=== PATIENT | female | born 1990 | race Two or more races ===

== ENCOUNTER 2020-01-18 01:11 | Emergency (ER) | payer MEDICAID ==
[~2020-01-18] VITALS: Ht 162.6 cm; Wt 88.6 kg
[2020-01-18 01:15] VITALS: BP 141/78
[2020-01-18] MEDS ORDERED: BENZ-16 PO (02:00)
== END 2020-01-18 02:10 | disposition home or self-care (01) ==
LOC: ER 01:12
DX: R05 Cough (principal); J02.9 Acute pharyngitis, unspecified; Z56.0 Unemployment, unspecified
CPT/HCPCS: 99283

== ENCOUNTER 2021-02-24 05:30 | Emergency (ER) | payer MEDICAID ==
[~2021-02-24] VITALS: Ht 162.6 cm; Wt 86.4 kg
[2021-02-24 06:25] VITALS: BP 130/97
== END 2021-02-24 06:27 | disposition home or self-care (01) ==
LOC: ER 05:30
DX: J02.9 Acute pharyngitis, unspecified (principal); R05 Cough; R21 Rash and other nonspecific skin eruption; E11.9 Type 2 diabetes mellitus without complications; Z56.0 Unemployment, unspecified; Z98.890 Other specified postprocedural states
CPT/HCPCS: 99281

== ENCOUNTER 2021-05-27 17:14 | Emergency (ER) | payer MEDICAID ==
[~2021-05-27] VITALS: Ht 162.6 cm; Wt 95.9 kg
[2021-05-27 17:15] VITALS: BP 147/101
[2021-05-27] MEDS ORDERED: PRED20TA PO (17:49)
[2021-05-27] MEDS ORDERED: PENI250T2 PO (17:49)
[2021-05-27] MEDS ORDERED: LIDO20SO16 PO (17:49)
[2021-05-27] MEDS ORDERED: AMOX500C2 PO (17:58)
== END 2021-05-27 18:04 | disposition home or self-care (01) ==
LOC: ER 17:15
DX: K04.7 Periapical abscess without sinus (principal); K08.89 Other specified disorders of teeth and supporting structures; E11.9 Type 2 diabetes mellitus without complications; Z98.890 Other specified postprocedural states; Z56.0 Unemployment, unspecified; Z79.2 Long term (current) use of antibiotics; Z79.899 Other long term (current) drug therapy
CPT/HCPCS: 99283

== ENCOUNTER 2021-09-07 03:13 | Emergency (ER) | payer MEDICAID ==
[~2021-09-07] VITALS: Ht 175.3 cm; Wt 97.3 kg
[~2021-09-07 03:13] MED LIST: LIDO20SO16 PO
[2021-09-07] MEDS ORDERED: ketorolac tromethamine 15mg/ml inj. IV ONE (04:40)
[2021-09-07] MEDS ORDERED: normal saline 1000ML IV soln IVB ONE (04:40)
[2021-09-07] MEDS ORDERED: SUMAtriptan succ. 6 MG/0.5ml vial SQ ONE (04:40)
[2021-09-07] MEDS ORDERED: dexamethasone sod phosphate 10mg/ml inj IV STA (04:40)
[2021-09-07] MEDS ORDERED: proCHLORperazine 10 MG/2 ml inj IV ONE (04:40)
[2021-09-07] MEDS ORDERED: LORazepam 2 mg/ml vial IV ONE (05:10)
[2021-09-07] MEDS ORDERED: PROC5TAB56 PO (05:26)
[2021-09-07] MEDS ORDERED: SUMA25TA35 PO (05:26)
[2021-09-07 06:31] VITALS: BP 124/98
--- NOTE | 2021-09-07 06:31 | NUR ---
PT REFUSED ALL MEDICATIONS.
== END 2021-09-07 06:34 | disposition home or self-care (01) ==
LOC: ER 03:13
DX: R51.9 Headache, unspecified (principal); F41.9 Anxiety disorder, unspecified; E11.9 Type 2 diabetes mellitus without complications; Z98.890 Other specified postprocedural states; Z56.0 Unemployment, unspecified; Z79.899 Other long term (current) drug therapy
CPT/HCPCS: 70450; 99284

== ENCOUNTER 2021-12-23 05:00 | Emergency (ER) | payer MEDICAID ==
[~2021-12-23] VITALS: Ht 162.6 cm; Wt 94.5 kg
[~2021-12-23 05:00] MED LIST changes: +PROC5TAB56 PO; +SUMA25TA35 PO
[2021-12-23 05:14] VITALS: BP 141/83
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
== END 2021-12-23 07:21 | disposition left against medical advice (07) ==
LOC: ER 05:00
DX: N64.4 Mastodynia (principal); Z53.21 Procedure and treatment not carried out due to patient leaving prior to being seen by health care provider

== ENCOUNTER 2022-02-10 09:52 | Emergency (ER) | payer MEDICAID ==
[~2022-02-10] VITALS: Ht 162.6 cm; Wt 100.0 kg
[2022-02-10 09:58] VITALS: BP 125/95
== END 2022-02-10 13:57 | disposition left against medical advice (07) ==
LOC: ER 09:52
DX: R06.02 Shortness of breath (principal); Z53.21 Procedure and treatment not carried out due to patient leaving prior to being seen by health care provider
CPT/HCPCS: 93005

== ENCOUNTER 2022-03-08 07:44 | Emergency (ER) | payer MEDICAID ==
[~2022-03-08] VITALS: Ht 162.6 cm; Wt 95.5 kg
[2022-03-08] MEDS ORDERED: NYST15PO4 TOP (09:38)
[2022-03-08 10:14] VITALS: BP 132/86
[2022-03-08 10:18] LABS: BASOPHILS # (AUTO) 0.1 X10'3 (0-0.2); BASOPHILS % (AUTO) 0.9 % (0-1); EOSINOPHILS # (AUTO) 0.3 X10'3 (0-0.9); EOSINOPHILS % (AUTO) 2.6 % (0-6); HEMATOCRIT 42.6 % (35.0-45.0); HEMOGLOBIN 14.1 g/dl (12.0-16.0); LYMPHOCYTES # (AUTO) 3.1 X10'3 (1.1-4.8); LYMPHOCYTES % (AUTO) 28.7 % (21-51); MEAN CORPUSCULAR HEMOGLOBIN 30.3 PG (27.0-31.0); MEAN CORPUSCULAR HGB CONC 33.2 g/dL (33.0-36.5); MEAN CORPUSCULAR VOLUME 91.3 FL (78-98); MEAN PLATELET VOLUME 8.4 FL (7.4-10.4); MONOCYTES # (AUTO) 0.8 X10'3 (0-0.9); MONOCYTES % (AUTO) 7.2 % (2-12); NEUTROPHILS # (AUTO) 6.5 X10'3 (1.8-7.7); NEUTROPHILS % (AUTO) 60.6 % (42-75); PLATELET COUNT 327 X10'3 (140-440); RED BLOOD COUNT 4.67 X10'6 (4.20-5.60); RED CELL DISTRIBUTION WIDTH 14.1 % (11.5-14.5); WHITE BLOOD COUNT 10.7 X10'3 (4.5-11.0)
[2022-03-08 10:35] LABS: ALANINE AMINOTRANSFERASE 156 U/L (12-78); ALBUMIN 3.7 G/DL (3.4-5.0); ALBUMIN/GLOBULIN RATIO 0.9 (1.1-1.5); ALKALINE PHOSPHATASE 97 IU/L (46-116); ANION GAP 11 (8-16); ASPARTATE AMINO TRANSFERASE 68 U/L (10-37); BILIRUBIN,TOTAL 0.4 MG/DL (0.1-1.0); BLOOD UREA NITROGEN 12 MG/DL (7-18); BUN/CREATININE RATIO 14.8 (6.6-38.0); CALCIUM 8.9 MG/DL (8.5-10.1); CHLORIDE 102 MMOL/L (99-107); CREATININE 0.81 MG/DL (0.40-0.90); GLUCOSE 102 MG/DL (70-104); POTASSIUM 3.8 MMOL/L (3.5-5.1); SODIUM 139 MMOL/L (135-145); TOTAL CARBON DIOXIDE 25.9 MMOL/L (24-32); TOTAL PROTEIN 7.8 G/DL (6.4-8.2); eGFR 83 ML/MIN
--- NOTE | 2022-03-17 09:44 | NUR ---
Patient call and was notified regarding need to be placed on prescription for bactrim DS 160 mg TMP PO BID x 7 days total 14 tablets with [address] andrade. Patient stated would like prescription to be called in to [facility], voicemail message left for pharmacist at [phone]. Patient aware of call in and will call pharmacy at 1030 to check on RX.
== END 2022-03-08 10:37 | disposition left against medical advice (07) ==
LOC: ER 07:45
DX: R10.84 Generalized abdominal pain (principal); B37.2 Candidiasis of skin and nail; E11.9 Type 2 diabetes mellitus without complications; Z98.890 Other specified postprocedural states; Z56.0 Unemployment, unspecified; Z79.899 Other long term (current) drug therapy
CPT/HCPCS: 36415; 76700; 80053; 85025; 87070; 87077; 87186; 99284

== ENCOUNTER 2022-03-16 17:34 | Emergency (ER) | payer MEDICAID ==
[~2022-03-16] VITALS: Ht 162.6 cm; Wt 95.0 kg
[~2022-03-16 17:34] MED LIST changes: +NYST15PO4 TOP
--- NOTE | 2022-03-16 18:25 | NUR ---
patient's called to see if she had been called yet, because they "are nearby but needed to use the bathroom"
[2022-03-16] MEDS ORDERED: MECL-159 PO (20:19)
[2022-03-16 20:25] VITALS: BP 112/87
== END 2022-03-16 20:53 | disposition home or self-care (01) ==
LOC: ER 17:36
DX: R42 Dizziness and giddiness (principal); R19.5 Other fecal abnormalities; G43.909 Migraine, unspecified, not intractable, without status migrainosus; E11.9 Type 2 diabetes mellitus without complications; Z98.890 Other specified postprocedural states; Z56.0 Unemployment, unspecified; Z79.899 Other long term (current) drug therapy
CPT/HCPCS: 99283

== ENCOUNTER 2022-03-20 10:33 | Emergency (ER) | payer MEDICAID ==
[~2022-03-20] VITALS: Ht 162.6 cm; Wt 95.5 kg
[~2022-03-20 10:33] MED LIST changes: +MECL-159 PO
[2022-03-20 11:13] VITALS: BP 128/94
== END 2022-03-20 13:43 | disposition left against medical advice (07) ==
LOC: ER 10:33
DX: R42 Dizziness and giddiness (principal); Z53.21 Procedure and treatment not carried out due to patient leaving prior to being seen by health care provider

== ENCOUNTER 2022-03-24 06:49 | Emergency (ER) | payer MEDICAID ==
[~2022-03-24] VITALS: Ht 162.6 cm; Wt 95.5 kg
[2022-03-24 06:53] VITALS: BP 139/97
--- NOTE | 2022-03-24 06:55 | NUR ---
REQUESTED FOR PT TO CHANGE INTO GOWN IN HER ROOM FOR EDMD TO ASSESS HER. PT REPORTS "I'M NOT TRYING TO BE DIFFICULT, I JUST DONT WANT TO CHANGE OR LET GO OF MY BREAST BECAUSE IT HURTS TOO MUCH."
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
[2022-03-24] MEDS ORDERED: SULF1TAB45 PO (07:04)
--- NOTE | 2022-03-24 07:20 | NUR ---
Pt left without being treated with IB or formal discharge.
[2022-03-24] MEDS ORDERED: ibuprofen 200mg tablet PO ONE (07:30)
== END 2022-03-24 07:20 | disposition home or self-care (01) ==
LOC: ER 06:50
DX: S20.02XA Contusion of left breast, initial encounter (principal); G43.909 Migraine, unspecified, not intractable, without status migrainosus; E11.9 Type 2 diabetes mellitus without complications; Z86.79 Personal history of other diseases of the circulatory system; Z56.0 Unemployment, unspecified; Z79.899 Other long term (current) drug therapy; W50.0XXA Accidental hit or strike by another person, initial encounter; Y93.89 Activity, other specified; Y92.89 Other specified places as the place of occurrence of the external cause; Y99.8 Other external cause status
CPT/HCPCS: 99281

== ENCOUNTER 2022-04-05 01:44 | Emergency (ER) | payer MEDICAID ==
[~2022-04-05] VITALS: Ht 162.6 cm; Wt 98.2 kg
[~2022-04-05 01:44] MED LIST changes: -LIDO20SO16 PO; +SULF1TAB45 PO
[2022-04-05 04:41] LABS: BASOPHILS # (AUTO) 0.1 X10'3 (0-0.2); BASOPHILS % (AUTO) 0.6 % (0-1); EOSINOPHILS # (AUTO) 0.3 X10'3 (0-0.9); EOSINOPHILS % (AUTO) 3.1 % (0-6); HEMATOCRIT 43.3 % (35.0-45.0); HEMOGLOBIN 14.5 g/dl (12.0-16.0); LYMPHOCYTES # (AUTO) 3.5 X10'3 (1.1-4.8); LYMPHOCYTES % (AUTO) 32.1 % (21-51); MEAN CORPUSCULAR HEMOGLOBIN 30.5 PG (27.0-31.0); MEAN CORPUSCULAR HGB CONC 33.5 g/dL (33.0-36.5); MEAN PLATELET VOLUME 8.1 FL (7.4-10.4); MONOCYTES # (AUTO) 0.9 X10'3 (0-0.9); MONOCYTES % (AUTO) 8.2 % (2-12); PLATELET COUNT 294 X10'3 (140-440); RED BLOOD COUNT 4.75 X10'6 (4.20-5.60); RED CELL DISTRIBUTION WIDTH 13.5 % (11.5-14.5); WHITE BLOOD COUNT 10.8 X10'3 (4.5-11.0)
[2022-04-05 04:52] LABS: APTT 28 SECONDS (22-32)
[2022-04-05 04:55] LABS: ALANINE AMINOTRANSFERASE 105 U/L (12-78); ALKALINE PHOSPHATASE 105 IU/L (46-116); ANION GAP 10 (8-16); ASPARTATE AMINO TRANSFERASE 37 U/L (10-37); BILIRUBIN,TOTAL 0.5 MG/DL (0.1-1.0); BLOOD UREA NITROGEN 15 MG/DL (7-18); CALCIUM 8.8 MG/DL (8.5-10.1); CHLORIDE 105 MMOL/L (99-107); CREATININE 0.88 MG/DL (0.40-0.90); GLUCOSE 118 MG/DL (70-104); POTASSIUM 3.7 MMOL/L (3.5-5.1); SODIUM 139 MMOL/L (135-145); TOTAL CARBON DIOXIDE 24.3 MMOL/L (24-32); eGFR 75 ML/MIN
--- NOTE | 2022-04-05 05:20 | NUR ---
PT IS REFUSING TREATMENTS RECOMMENDED BY DOCTOR DESPITE EDUCATION PROVIDED. PT IS BEING UNCOPERATIVE TO STAFF WHEN TRYING TO PROVIDE CARE.
[2022-04-05] MEDS ORDERED: ibuprofen tablet 400 MG TABLET PO ONE (06:40)
[2022-04-05] MEDS ORDERED: LORazepam 1 MG tablet PO ONE (06:50)
--- NOTE | 2022-04-05 07:20 | NUR ---
Pt is very concerned and states she had large green colored stool. Dr. Travis aware.
[2022-04-05 10:03] VITALS: BP 111/75
--- NOTE | 2022-04-05 10:41 | NUR ---
Pt returned from MRI, unable to get scan. Patient became immediately tearful when laid down for MRI. Dr. Cody aware. States MRI can be done outpatient.
== END 2022-04-05 11:04 | disposition home or self-care (01) ==
LOC: ER 01:44
DX: R20.2 Paresthesia of skin (principal); G43.909 Migraine, unspecified, not intractable, without status migrainosus; E11.9 Type 2 diabetes mellitus without complications; Z56.0 Unemployment, unspecified; Z79.899 Other long term (current) drug therapy; Z86.19 Personal history of other infectious and parasitic diseases
CPT/HCPCS: 36415; 80053; 85025; 85610; 85730; 99285

== ENCOUNTER 2022-04-25 12:40 | Emergency (ER) | payer MEDICAID ==
[~2022-04-25] VITALS: Ht 162.6 cm; Wt 51.8 kg
[2022-04-25 12:49] VITALS: BP 143/98
[2022-04-25 13:22] LABS: BASOPHILS % (AUTO) 0.1 % (0-1); EOSINOPHILS # (AUTO) 1.3 X10'3 (0-0.9); EOSINOPHILS % (AUTO) 8.6 % (0-6); HEMATOCRIT 46.4 % (35.0-45.0); HEMOGLOBIN 15.3 g/dl (12.0-16.0); LYMPHOCYTES # (AUTO) 1.2 X10'3 (1.1-4.8); LYMPHOCYTES % (AUTO) 8.2 % (21-51); MEAN CORPUSCULAR VOLUME 90.8 FL (78-98); MEAN PLATELET VOLUME 8.1 FL (7.4-10.4); MONOCYTES # (AUTO) 0.7 X10'3 (0-0.9); MONOCYTES % (AUTO) 4.5 % (2-12); NEUTROPHILS # (AUTO) 11.9 X10'3 (1.8-7.7); NEUTROPHILS % (AUTO) 78.6 % (42-75); PLATELET COUNT 357 X10'3 (140-440); RED BLOOD COUNT 5.11 X10'6 (4.20-5.60); RED CELL DISTRIBUTION WIDTH 13.5 % (11.5-14.5); WHITE BLOOD COUNT 15.1 X10'3 (4.5-11.0)
[2022-04-25 13:39] LABS: ALANINE AMINOTRANSFERASE 125 U/L (12-78); ALBUMIN 3.9 G/DL (3.4-5.0); ALBUMIN/GLOBULIN RATIO 0.9 (1.1-1.5); ALKALINE PHOSPHATASE 110 IU/L (46-116); ANION GAP 12 (8-16); ASPARTATE AMINO TRANSFERASE 61 U/L (10-37); BILIRUBIN,TOTAL 0.8 MG/DL (0.1-1.0); BLOOD UREA NITROGEN 10 MG/DL (7-18); BUN/CREATININE RATIO 10.4 (6.6-38.0); CALCIUM 9.3 MG/DL (8.5-10.1); CHLORIDE 100 MMOL/L (99-107); CREATININE 0.96 MG/DL (0.40-0.90); GLUCOSE 113 MG/DL (70-104); POTASSIUM 3.8 MMOL/L (3.5-5.1); SODIUM 137 MMOL/L (135-145); TOTAL CARBON DIOXIDE 25.4 MMOL/L (24-32); TOTAL PROTEIN 8.2 G/DL (6.4-8.2); eGFR 68 ML/MIN
[2022-04-25] MEDS ORDERED: proCHLORperazine 10 MG/2 ml inj IV ONE (16:10)
[2022-04-25] MEDS ORDERED: normal saline 1000ml 1,000 ML IV ONE (16:10)
[2022-04-25] MEDS ORDERED: ONDA4TAB12 PO (17:59)
--- NOTE | 2022-04-25 18:04 | NUR ---
HR 137. Pt refused to have B/P or other vitals taken prior to leaving. Pt left AMA, ROUTE AIDE notified.
== END 2022-04-25 18:09 | disposition left against medical advice (07) ==
LOC: ER 12:42
DX: R11.2 Nausea with vomiting, unspecified (principal); R51.9 Headache, unspecified; E86.0 Dehydration; E11.9 Type 2 diabetes mellitus without complications; G43.909 Migraine, unspecified, not intractable, without status migrainosus; Z79.899 Other long term (current) drug therapy; Z56.0 Unemployment, unspecified
CPT/HCPCS: 36415; 71045; 80053; 85025; 93005; 96374; 99285; J0780; J7030

== ENCOUNTER 2022-06-29 02:27 | Emergency (ER) | payer MEDICAID ==
[~2022-06-29] VITALS: Ht 160 cm; Wt 99.5 kg
[~2022-06-29 02:27] MED LIST changes: +ONDA4TAB12 PO
[2022-06-29 02:35] VITALS: BP 127/102
--- NOTE | 2022-06-29 02:56 | NUR ---
PATIENT REFUSED TO BE ROOMED, PLACED BACK IN THE LOBBY
== END 2022-06-29 05:26 | disposition left against medical advice (07) ==
LOC: ER 02:29
DX: R00.2 Palpitations (principal); Z53.21 Procedure and treatment not carried out due to patient leaving prior to being seen by health care provider

== ENCOUNTER 2022-09-07 05:44 | Emergency (ER) | payer MEDICARE, MEDICAID ==
[2022-09-07 05:56] VITALS: BP 128/96
--- NOTE | 2022-09-07 07:25 | NUR ---
provider at bedside.
--- NOTE | 2022-09-07 07:35 | NUR ---
UTL pt in lobby, restrooms or pt room.
[2022-09-07] MEDS ORDERED: loratadine 10mg tablet PO ONE (08:00)
[2022-09-07] MEDS ORDERED: loratadine 10mg tablet PO SCH (08:00)
== END 2022-09-07 07:55 | disposition left against medical advice (07) ==
LOC: ER 05:44
DX: H57.13 Ocular pain, bilateral (principal); H57.89 Other specified disorders of eye and adnexa; G43.909 Migraine, unspecified, not intractable, without status migrainosus; E11.9 Type 2 diabetes mellitus without complications; Z56.0 Unemployment, unspecified; Z79.899 Other long term (current) drug therapy; Z91.048 Other nonmedicinal substance allergy status
CPT/HCPCS: 99281